=== PATIENT | male | born 1940 | race Caucasian/White ===

== ENCOUNTER 2017-07-11 08:56 | Day surgery (SDC) | payer MEDICARE, MEDICAID ==
[~2017-07-11 08:56] MED LIST: ASPI-1265 PO; ATOR20TA66 PO; INSU100V12 SQ; INSU100V36 SQ; LISI10TA4 PO; METF1000 PO
[2017-07-11] MEDS ORDERED: LIDOcaine 2% 5ml jelly ONE (09:39)
[2017-07-11] MEDS ORDERED: BENA20TA76 PO (10:40)
[2017-07-11] MEDS ORDERED: SAW450CA7 PO (10:41)
[2017-07-11] MEDS ORDERED: VITA1CAP (10:42)
== END 2017-07-11 10:45 | disposition home or self-care (01) ==
LOC: WOUND CARE 08:56
PROVIDERS: ATTEND Surgery
DX: T81.89XD Other complications of procedures, not elsewhere classified, subsequent encounter (principal); E11.622 Type 2 diabetes mellitus with other skin ulcer; L98.491 Non-pressure chronic ulcer of skin of other sites limited to breakdown of skin; I10 Essential (primary) hypertension; Z79.82 Long term (current) use of aspirin; Z79.4 Long term (current) use of insulin; Z79.899 Other long term (current) drug therapy; Y83.8 Other surgical procedures as the cause of abnormal reaction of the patient, or of later complication, without mention of misadventure at the time of the procedure
CPT/HCPCS: 17250; 36416; 82948; A6206; A6209

== ENCOUNTER 2017-07-17 08:51 | Day surgery (SDC) | payer MEDICARE, MEDICAID ==
[~2017-07-17 08:51] MED LIST changes: -ATOR20TA66 PO; +BENA20TA76 PO; -LISI10TA4 PO; +SAW450CA7 PO; +VITA1CAP
[2017-07-17] MEDS ORDERED: LIDOcaine 2% 5ml jelly ONE (10:05)
== END 2017-07-17 10:43 | disposition home or self-care (01) ==
LOC: WOUND CARE 08:51
PROVIDERS: ATTEND Surgery
DX: T81.89XD Other complications of procedures, not elsewhere classified, subsequent encounter (principal); I10 Essential (primary) hypertension; Z79.4 Long term (current) use of insulin; Y83.8 Other surgical procedures as the cause of abnormal reaction of the patient, or of later complication, without mention of misadventure at the time of the procedure
CPT/HCPCS: 17250; 36416; 82948; A6021; A6213

== ENCOUNTER 2017-07-24 09:33 | Outpatient (CLI) | payer MEDICARE, MEDICAID ==
[2017-07-24] MEDS ORDERED: LIDOcaine 2% 5ml jelly ONE (10:10)
[2017-07-24] MEDS ORDERED: nystatin/triamcinolone cream 15gm TP ONE (10:43)
== END 2017-07-24 10:52 | disposition home or self-care (01) ==
LOC: WOUND CARE 09:33
PROVIDERS: ATTEND Surgery
DX: T81.89XD Other complications of procedures, not elsewhere classified, subsequent encounter (principal); L98.491 Non-pressure chronic ulcer of skin of other sites limited to breakdown of skin; I10 Essential (primary) hypertension; Z79.82 Long term (current) use of aspirin; Z79.899 Other long term (current) drug therapy; Y83.8 Other surgical procedures as the cause of abnormal reaction of the patient, or of later complication, without mention of misadventure at the time of the procedure
CPT/HCPCS: 99214; A6212

== ENCOUNTER 2017-07-31 09:47 | Day surgery (SDC) | payer MEDICARE, MEDICAID ==
[2017-07-31] MEDS ORDERED: LIDOcaine 2% 5ml jelly ONE (10:18)
== END 2017-07-31 10:35 | disposition home or self-care (01) ==
LOC: WOUND CARE 09:47
PROVIDERS: ATTEND Surgery
DX: T81.89XD Other complications of procedures, not elsewhere classified, subsequent encounter (principal); L98.491 Non-pressure chronic ulcer of skin of other sites limited to breakdown of skin; I10 Essential (primary) hypertension; Z79.82 Long term (current) use of aspirin; Z79.899 Other long term (current) drug therapy; Y83.8 Other surgical procedures as the cause of abnormal reaction of the patient, or of later complication, without mention of misadventure at the time of the procedure
CPT/HCPCS: 17250; 36416; 82948; A6021; A6212

== ENCOUNTER 2018-05-06 08:02 | Day surgery (SDC) | payer MEDICARE, MEDICAID ==
[2018-05-06] VITALS (7 sets, daily range): BP systolic 149–179; BP diastolic 71–102
[~2018-05-06] VITALS: Ht 180.3 cm; Wt 110.0 kg
[~2018-05-06 08:02] MED LIST changes: +ASCO500C15 PO; -BENA20TA76 PO; +BRIM10DR2 EACHEYE; +GARL400T5 PO; -INSU100V12 SQ; +LANTUS SQ; +LISI-604 PO; +NIA500ERT PO; +OMEG1CAP13 PO; -SAW450CA7 PO; +TRAV5DRO EACHEYE; +UBID1CAP60 PO; +VITA150T PO; -VITA1CAP; +famotidine 20mg tablet PO ONE; +ringers solution, lacted 1,000 ML IV SCH
[2018-05-06] MEDS ORDERED: cefazolin/dext.iso 2gm/100ml 100 ML IV ONE (09:06)
[2018-05-06 10:23] LABS: BASOPHILS % (AUTO) 0.8 % (0-1); EOSINOPHILS # (AUTO) 0.1 X10'3 (0-0.9); EOSINOPHILS % (AUTO) 2.2 % (0-6); LYMPHOCYTES % (AUTO) 19.6 % (21-51); MEAN CORPUSCULAR HGB CONC 33.4 % (33.0-36.5); MEAN CORPUSCULAR VOLUME 92.8 FL (78-98); MEAN PLATELET VOLUME 10.1 FL (7.4-10.4); MONOCYTES # (AUTO) 0.3 X10'3 (0-0.9); MONOCYTES % (AUTO) 5.8 % (2-12); NEUTROPHILS # (AUTO) 3.7 X10'3 (1.8-7.7); NEUTROPHILS % (AUTO) 71.6 % (42-75); PRE OP HEMOGLOBIN 13.7 g/dL (14.0-17.9); PRE OP PLATELET COUNT 185 X10'3 (140-440); RED BLOOD COUNT 4.42 X10'6 (4.70-6.10); RED CELL DISTRIBUTION WIDTH 14.3 % (11.5-14.5)
[2018-05-06 10:39] LABS: ALBUMIN 3.1 G/DL (3.4-5.0); ALBUMIN/GLOBULIN RATIO 0.7 (1.1-1.5); ALKALINE PHOSPHATASE 114 IU/L (46-116); BLOOD UREA NITROGEN 12 MG/DL (7-18); BUN/CREATININE RATIO 16.9 (5.4-32.0); CALCIUM 8.8 MG/DL (8.5-10.1); CHLORIDE 104 MMOL/L (99-107); CREATININE 0.71 MG/DL (0.60-1.10); PRE OP ALT 18 U/L (30-65); PRE OP ANION GAP 6 (8-16); PRE OP AST 18 U/L (10-37); PRE OP BILIRUB, TOTAL 1.1 MG/DL (0.0-1.0); PRE OP GLUCOSE 126 MG/DL (70-104); PRE OP POTASSIUM 4.2 MMOL/L (3.4-5.1); PRE OP SODIUM 144 MMOL/L (135-145); TOTAL CARBON DIOXIDE 34.2 MMOL/L (24-32); TOTAL PROTEIN 7.5 G/DL (6.4-8.2); eGFR > 90 ML/MIN
[2018-05-06] MEDS ORDERED: sevoflurane 250ml liquid IH ONE (12:19)
[2018-05-06] MEDS ORDERED: LIDOcaine 1% (10mg/ml) 2ml vial ONE (12:19)
[2018-05-06] MEDS ORDERED: fentaNYL/PF 50MCG/1 ML 2ML syringe ONE (12:24)
[2018-05-06] MEDS ORDERED: midazolam 2 mg/2 ml injection ONE (12:25)
[2018-05-06] MEDS ORDERED: rocuronium 10mg/ml inj IV ONE (12:25)
[2018-05-06] MEDS ORDERED: propofol inj 20 ML IV ONE (12:33)
[2018-05-06] MEDS ORDERED: ringers solution, lacted 1,000 ML IV SCH (12:47)
[2018-05-06] MEDS ORDERED: morphine 4 MG/ML inj SYRINge IV PRN ×2 (12:50)
[2018-05-06] MEDS ORDERED: ondansetron/PF 4mg/2ml inj IV PRN (12:50)
[2018-05-06] MEDS ORDERED: fentaNYL/PF 50MCG/1 ML 2ML syringe IV PRN ×2 (12:50)
[2018-05-06] MEDS ORDERED: enalaprilat dihydrate 2.5mg/2ml vial IV PRN (12:50)
[2018-05-06] MEDS ORDERED: hydrALAZINE 20mg/ml inj. IV PRN (12:50)
[2018-05-06] MEDS ORDERED: flumazenil 0.1 mg/ml inj. IV ONE (13:04)
== END 2018-05-06 13:55 | disposition home or self-care (01) ==
LOC: PAS 08:02
PROVIDERS: ATTEND Surgery
DX: T81.89XA Other complications of procedures, not elsewhere classified, initial encounter (principal); Y83.8 Other surgical procedures as the cause of abnormal reaction of the patient, or of later complication, without mention of misadventure at the time of the procedure; Y92.89 Other specified places as the place of occurrence of the external cause; I45.2 Bifascicular block; E66.01 Morbid (severe) obesity due to excess calories; I10 Essential (primary) hypertension; G47.33 Obstructive sleep apnea (adult) (pediatric); E11.9 Type 2 diabetes mellitus without complications; M19.90 Unspecified osteoarthritis, unspecified site; Z68.33 Body mass index [BMI] 33.0-33.9, adult; Z95.5 Presence of coronary angioplasty implant and graft; Z98.41 Cataract extraction status, right eye; Z86.14 Personal history of Methicillin resistant Staphylococcus aureus infection; Z79.82 Long term (current) use of aspirin; Z79.4 Long term (current) use of insulin; Z79.84 Long term (current) use of oral hypoglycemic drugs; Z87.891 Personal history of nicotine dependence; Z79.899 Other long term (current) drug therapy; Z98.890 Other specified postprocedural states; Z83.3 Family history of diabetes mellitus; Z80.9 Family history of malignant neoplasm, unspecified
CPT/HCPCS: 11043; 36415; 80053; 82948; 85025; 93005; A6253; J0690; J2250; J2704; J3010; J3490; J7120; A6446; A7000

== ENCOUNTER 2018-05-25 09:22 | Day surgery (SDC) | payer MEDICARE, MEDICAID ==
[~2018-05-25 09:22] MED LIST changes: -famotidine 20mg tablet PO ONE; -ringers solution, lacted 1,000 ML IV SCH
== END 2018-05-25 12:44 | disposition home or self-care (01) ==
LOC: WOUND CARE 09:22
PROVIDERS: ATTEND Surgery
DX: T81.89XD Other complications of procedures, not elsewhere classified, subsequent encounter (principal); L98.491 Non-pressure chronic ulcer of skin of other sites limited to breakdown of skin; I10 Essential (primary) hypertension; Z79.82 Long term (current) use of aspirin; Z79.899 Other long term (current) drug therapy; Y83.8 Other surgical procedures as the cause of abnormal reaction of the patient, or of later complication, without mention of misadventure at the time of the procedure
CPT/HCPCS: 36416; 82948; 97597; A6266; A6212

== ENCOUNTER 2018-06-01 10:19 | Day surgery (SDC) | payer MEDICARE, MEDICAID | END 2018-06-01 12:28 | disposition home or self-care (01) | LOC: WOUND CARE 10:19 | PROVIDERS: ATTEND Surgery | DX: T81.89XD Other complications of procedures, not elsewhere classified, subsequent encounter (principal); L98.492 Non-pressure chronic ulcer of skin of other sites with fat layer exposed; E11.65 Type 2 diabetes mellitus with hyperglycemia; I10 Essential (primary) hypertension; Z79.82 Long term (current) use of aspirin; Z79.899 Other long term (current) drug therapy; Y83.8 Other surgical procedures as the cause of abnormal reaction of the patient, or of later complication, without mention of misadventure at the time of the procedure | CPT/HCPCS: 11042; 36416; 82948; A6266 ==

== ENCOUNTER 2018-06-15 10:32 | Day surgery (SDC) | payer MEDICARE, MEDICAID | END 2018-06-15 13:17 | disposition home or self-care (01) | LOC: WOUND CARE 10:32 | PROVIDERS: ATTEND Surgery | DX: T81.89XD Other complications of procedures, not elsewhere classified, subsequent encounter (principal); L98.492 Non-pressure chronic ulcer of skin of other sites with fat layer exposed; E11.65 Type 2 diabetes mellitus with hyperglycemia; I10 Essential (primary) hypertension; Z79.82 Long term (current) use of aspirin; Z79.899 Other long term (current) drug therapy; Y83.8 Other surgical procedures as the cause of abnormal reaction of the patient, or of later complication, without mention of misadventure at the time of the procedure | CPT/HCPCS: 17250; 36416; 82948; 97597; A6021; A6212 ==

== ENCOUNTER 2018-06-25 09:01 | Day surgery (SDC) | payer MEDICARE, MEDICAID | END 2018-06-25 12:05 | disposition home or self-care (01) | LOC: WOUND CARE 09:01 | PROVIDERS: ATTEND Surgery | DX: T81.89XD Other complications of procedures, not elsewhere classified, subsequent encounter (principal); L98.492 Non-pressure chronic ulcer of skin of other sites with fat layer exposed; E11.65 Type 2 diabetes mellitus with hyperglycemia; I10 Essential (primary) hypertension; Z79.82 Long term (current) use of aspirin; Z79.899 Other long term (current) drug therapy; Y83.8 Other surgical procedures as the cause of abnormal reaction of the patient, or of later complication, without mention of misadventure at the time of the procedure | CPT/HCPCS: 36416; 82948; 97597; A6021; A6212 ==

== ENCOUNTER 2018-07-10 09:53 | Day surgery (SDC) | payer MEDICARE, MEDICAID ==
[2018-07-10] MEDS ORDERED: LIDOcaine/PRILOcaine 5gm cream TP ONE (11:02)
--- NOTE | 2018-07-10 14:01 | NUR ---
Patient ambulated independently from [facility] and was admitted to outpatient wound care for physician visit. Dressings removed, wounds cleansed and Emla applied per order. Patient assessed for changes in conditions, medications and medical history. [id number] Dr. Collins at bedside accompanied by RN. Wound assessed, time out performed by MD/RN. Wound debrided as detailed in the physician progress/procedure note. Plan of care discussed with patient. Dressings placed per MD orders. Patient instructed on the signs and symptoms of infection and to call the Wound Center if any occur or to go to the ED if we are closed: Increased pain in wound Increase in drainage from the wound Redness in the skin surrounding the wound Bleeding from the wound Temperature of 101 or greater Patient instructed that elevated blood sugars delay healing of the wound and can cause further complications including but not limited to amputation of toes or feet. Patient verbalized understanding of all discharge instructions and plan of care and ambulated independently out to [facility] in stable condition with no sign or symptom of distress at time of discharge Addendum: 07/10/18 at 1405 by Andreina Carrasco RN Amended: Links added.
== END 2018-07-10 11:46 | disposition home or self-care (01) ==
LOC: WOUND CARE 09:53
PROVIDERS: ATTEND Surgery
DX: T84.69XD Infection and inflammatory reaction due to internal fixation device of other site, subsequent encounter (principal); L98.492 Non-pressure chronic ulcer of skin of other sites with fat layer exposed; E11.65 Type 2 diabetes mellitus with hyperglycemia; I10 Essential (primary) hypertension; G47.30 Sleep apnea, unspecified; Z79.82 Long term (current) use of aspirin; Z79.899 Other long term (current) drug therapy; Y83.8 Other surgical procedures as the cause of abnormal reaction of the patient, or of later complication, without mention of misadventure at the time of the procedure
CPT/HCPCS: 17250; 36416; 82948; A6021; A6206

== ENCOUNTER 2018-07-23 09:59 | Day surgery (SDC) | payer MEDICARE, MEDICAID ==
[2018-07-23] MEDS ORDERED: LIDOcaine 2% 5ml jelly ONE (12:02)
--- NOTE | 2018-07-23 14:21 | NUR ---
Patient ambulated independently from [facility] and was admitted to outpatient wound care for physician visit. Dressing removed, wound cleansed and Emla applied per order. Patient assessed for changes in conditions, medications and medical history. Dr. Collins at bedside accompanied by RN. Wound assessed, time out performed by MD/RN. Wound debrided as detailed in the physician progress/procedure note. Plan of care discussed with patient. Dressings placed per MD orders. Patient instructed on the signs and symptoms of infection and to call the Wound Center if any occur or to go to the ED if we are closed: Increased pain in wound Increase in drainage from the wound Redness in the skin surrounding the wound Bleeding from the wound Temperature of 101 or greater Patient instructed that elevated blood sugars delay healing of the wound and can cause further complications including but not limited to amputation of toes or feet. Patient verbalized understanding of all discharge instructions and plan of care and ambulated independently out to [facility] in stable condition with no sign or symptom of distress at time of discharge. Addendum: 07/23/18 at 1438 by Andreina Carrasco RN Amended: Links added.
== END 2018-07-23 12:41 | disposition home or self-care (01) ==
LOC: WOUND CARE 09:59
PROVIDERS: ATTEND Surgery
DX: T84.69XD Infection and inflammatory reaction due to internal fixation device of other site, subsequent encounter (principal); L98.492 Non-pressure chronic ulcer of skin of other sites with fat layer exposed; E11.65 Type 2 diabetes mellitus with hyperglycemia; I10 Essential (primary) hypertension; M19.90 Unspecified osteoarthritis, unspecified site; G47.30 Sleep apnea, unspecified; Z79.82 Long term (current) use of aspirin; Z79.899 Other long term (current) drug therapy; Y83.8 Other surgical procedures as the cause of abnormal reaction of the patient, or of later complication, without mention of misadventure at the time of the procedure
CPT/HCPCS: 36416; 82948; 97597; A4649; A6021; A6206; A6243

== ENCOUNTER 2018-08-07 09:50 | Day surgery (SDC) | payer MEDICARE, MEDICAID ==
[2018-08-07] MEDS ORDERED: LIDOcaine 2% 5ml jelly ONE (10:36)
--- NOTE | 2018-08-07 11:30 | NUR ---
Patient ambulated independently from [facility] and was admitted to outpatient wound care for physician visit with Eric Collins MD. Dressing removed, wound cleansed and lidocaine applied per order. Patient assessed for changes in conditions, medications and medical history. 1034 - blood glucose 102. Patient instructed that elevated blood sugars delay healing of the wound and can cause further complications including but not limited to amputation of toes or feet. 1100 - Dr. Collins at bedside accompanied by RN. Wound assessed, time out performed by MD/RN. Wound debrided as detailed in the physician progress/procedure note. Plan of care discussed with patient. Dressings placed per MD orders. Patient instructed on the signs and symptoms of infection and to call the Wound Center if any occur or to go to the ED if we are closed: Increased pain in wound Increase in drainage from the wound Redness in the skin surrounding the wound Bleeding from the wound Temperature of 101 or greater Patient instructed that the weight of their body puts a large amount of pressure on their wounds. This pressure keeps the new tissue from growing and inhibits new blood vessels from forming. Explained that, if they continue to bear weight on a body part that has a wound, the time it takes to heal the wound increases, the wound may get worse or the wound may not heal at all. Patient verbalized understanding of all discharge instructions and plan of care and ambulated independently out to [facility] in stable condition with no sign or symptom of distress at time of discharge.
== END 2018-08-07 11:04 | disposition home or self-care (01) ==
LOC: WOUND CARE 09:50
PROVIDERS: ATTEND Surgery
DX: T84.69XD Infection and inflammatory reaction due to internal fixation device of other site, subsequent encounter (principal); L98.492 Non-pressure chronic ulcer of skin of other sites with fat layer exposed; E11.65 Type 2 diabetes mellitus with hyperglycemia; I10 Essential (primary) hypertension; M19.90 Unspecified osteoarthritis, unspecified site; G47.30 Sleep apnea, unspecified; Z79.82 Long term (current) use of aspirin; Z79.899 Other long term (current) drug therapy; Y83.8 Other surgical procedures as the cause of abnormal reaction of the patient, or of later complication, without mention of misadventure at the time of the procedure
CPT/HCPCS: 36416; 82948; 97597; A6021

== ENCOUNTER 2018-08-12 19:46 | Emergency (ER) | payer MEDICARE, MEDICAID ==
[~2018-08-12] VITALS: Ht 180.3 cm; Wt 109.1 kg
[2018-08-12 19:50] VITALS: BP 121/79
[2018-08-12] MEDS ORDERED: insulin glargine (Lantus) pen - multi-dose SQ ONE (21:40)
== END 2018-08-12 22:19 | disposition home or self-care (01) ==
LOC: ER 19:47
DX: E10.9 Type 1 diabetes mellitus without complications (principal); I10 Essential (primary) hypertension; Z76.0 Encounter for issue of repeat prescription; Z79.82 Long term (current) use of aspirin; Z79.4 Long term (current) use of insulin
CPT/HCPCS: 96372; 99283; J1815

== ENCOUNTER 2018-08-14 09:58 | Day surgery (SDC) | payer MEDICARE, MEDICAID ==
[2018-08-14] MEDS ORDERED: LIDOcaine/PRILOcaine 5gm cream TP ONE (10:22)
--- NOTE | 2018-08-14 11:48 | NUR ---
Patient ambulated independently from [facility] and was admitted to outpatient wound care for physician visit with Eric Collins MD. Dressing removed, wound cleansed and lidocaine applied per order. Patient assessed for changes in conditions, medications and medical history. Dr. Collins at bedside accompanied by RN. Wound assessed, time out performed by MD/RN. Wound debrided as detailed in the physician progress/procedure note. Plan of care discussed with patient. Dressings placed per MD orders. Patient instructed on the signs and symptoms of infection and to call the Wound Center if any occur or to go to the ED if we are closed: Increased pain in wound Increase in drainage from the wound Redness in the skin surrounding the wound Bleeding from the wound Temperature of 101 or greater Patient instructed that elevated blood sugars delay healing of the wound and can cause further complications including but not limited to amputation of toes or feet. Patient instructed that the weight of their body puts a large amount of pressure on their wounds. This pressure keeps the new tissue from growing and inhibits new blood vessels from forming. Explained that, if they continue to bear weight on a body part that has a wound, the time it takes to heal the wound increases, the wound may get worse or the wound may not heal at all. Patient verbalized understanding of all discharge instructions and plan of care and ambulated independently out to [facility] in stable condition with no sign or symptom of distress at time of discharge. Addendum: 08/14/18 at 1150 by Andreina Carrasco RN Amended: Links added.
== END 2018-08-14 11:15 | disposition home or self-care (01) ==
LOC: WOUND CARE 09:58
PROVIDERS: ATTEND Surgery
DX: T84.69XD Infection and inflammatory reaction due to internal fixation device of other site, subsequent encounter (principal); E11.622 Type 2 diabetes mellitus with other skin ulcer; L98.492 Non-pressure chronic ulcer of skin of other sites with fat layer exposed; E11.65 Type 2 diabetes mellitus with hyperglycemia; I10 Essential (primary) hypertension; M19.90 Unspecified osteoarthritis, unspecified site; G47.30 Sleep apnea, unspecified; Z79.82 Long term (current) use of aspirin; Z79.899 Other long term (current) drug therapy; Y83.8 Other surgical procedures as the cause of abnormal reaction of the patient, or of later complication, without mention of misadventure at the time of the procedure
CPT/HCPCS: 36416; 82948; 97597; A6222; A6021

== ENCOUNTER 2018-08-26 09:28 | Day surgery (SDC) | payer MEDICARE, MEDICAID ==
[2018-08-26] MEDS ORDERED: LIDOcaine/PRILOcaine 5gm cream TP ONE (09:55)
--- NOTE | 2018-08-26 10:40 | NUR ---
Patient ambulated independently from [facility] and was admitted to outpatient wound care for physician visit with Eric Collins MD. Dressing removed, wound cleansed and lidocaine applied per order. Patient assessed for changes in conditions, medications and medical history. Dr. Collins at bedside accompanied by RN. Wound assessed, time out performed by MD/RN. Wound debrided as detailed in the physician progress/procedure note. Plan of care discussed with patient. Dressings placed per MD orders. Patient instructed on the signs and symptoms of infection and to call the Wound Center if any occur or to go to the ED if we are closed: Increased pain in wound Increase in drainage from the wound Redness in the skin surrounding the wound Bleeding from the wound Temperature of 101 or greater Patient instructed that elevated blood sugars delay healing of the wound and can cause further complications including but not limited to amputation of toes or feet. Patient instructed that the weight of their body puts a large amount of pressure on their wounds. This pressure keeps the new tissue from growing and inhibits new blood vessels from forming. Explained that, if they continue to bear weight on a body part that has a wound, the time it takes to heal the wound increases, the wound may get worse or the wound may not heal at all. Patient verbalized understanding of all discharge instructions and plan of care and ambulated independently out to [facility] in stable condition with no sign or symptom of distress at time of discharge. Addendum: 08/26/18 at 1040 by Andreina Carrasco RN Amended: Links added.
== END 2018-08-26 10:20 | disposition home or self-care (01) ==
LOC: WOUND CARE 09:28
PROVIDERS: ATTEND Surgery
DX: T84.69XD Infection and inflammatory reaction due to internal fixation device of other site, subsequent encounter (principal); E11.622 Type 2 diabetes mellitus with other skin ulcer; L98.492 Non-pressure chronic ulcer of skin of other sites with fat layer exposed; E11.65 Type 2 diabetes mellitus with hyperglycemia; I10 Essential (primary) hypertension; M19.90 Unspecified osteoarthritis, unspecified site; G47.30 Sleep apnea, unspecified; Z79.82 Long term (current) use of aspirin; Z79.899 Other long term (current) drug therapy; Z79.4 Long term (current) use of insulin; Y83.8 Other surgical procedures as the cause of abnormal reaction of the patient, or of later complication, without mention of misadventure at the time of the procedure
CPT/HCPCS: 17250; 36416; 82948; A6021; A6206; A6243

== ENCOUNTER 2018-09-02 09:54 | Day surgery (SDC) | payer MEDICARE, MEDICAID ==
[2018-09-02] MEDS ORDERED: LIDOcaine/PRILOcaine 5gm cream TP ONE (10:17)
--- NOTE | 2018-09-02 11:00 | NUR ---
Patient ambulated with walker accompanied by family from [facility] [employer] and was admitted to outpatient wound care for physician visit with Eric Collins MD. Dressing removed, wound cleansed and Emla cream applied per order. Patient assessed for changes in conditions, medications and medical history. 1029 - blood glucose 267. Patient instructed that elevated blood sugars delay healing of the wound and can cause further complications including but not limited to amputation of toes or feet. 1025 - Dr. Collins at bedside accompanied by RN. Wound assessed, time out performed by MD/RN. Wound debrided as detailed in the physician progress/procedure note. Plan of care discussed with patient. Dressings placed per MD orders. Patient instructed on the signs and symptoms of infection and to call the Wound Center if any occur or to go to the ED if we are closed: Increased pain in wound Increase in drainage from the wound Redness in the skin surrounding the wound Bleeding from the wound Temperature of 101 or greater Patient instructed that the weight of their body puts a large amount of pressure on their wounds. This pressure keeps the new tissue from growing and inhibits new blood vessels from forming. Explained that, if they continue to bear weight on a body part that has a wound, the time it takes to heal the wound increases, the wound may get worse or the wound may not heal at all. Patient verbalized understanding of all discharge instructions and plan of care and ambulated with walker accompanied by family member out to [facility] in stable condition with no sign or symptom of distress at time of discharge.
[2018-09-02] MEDS ORDERED: LACT1CAP65 PO (13:37)
== END 2018-09-02 10:49 | disposition home or self-care (01) ==
LOC: WOUND CARE 09:54
PROVIDERS: ATTEND Surgery
DX: T84.69XD Infection and inflammatory reaction due to internal fixation device of other site, subsequent encounter (principal); E11.622 Type 2 diabetes mellitus with other skin ulcer; L98.492 Non-pressure chronic ulcer of skin of other sites with fat layer exposed; E11.65 Type 2 diabetes mellitus with hyperglycemia; I10 Essential (primary) hypertension; M19.90 Unspecified osteoarthritis, unspecified site; G47.30 Sleep apnea, unspecified; Z79.82 Long term (current) use of aspirin; Z79.899 Other long term (current) drug therapy; Z79.4 Long term (current) use of insulin; Y83.8 Other surgical procedures as the cause of abnormal reaction of the patient, or of later complication, without mention of misadventure at the time of the procedure
CPT/HCPCS: 36416; 82948; 97597; A6021; A6212

== ENCOUNTER 2018-09-16 09:58 | Day surgery (SDC) | payer MEDICARE, MEDICAID ==
[~2018-09-16 09:58] MED LIST changes: +GARL400T14 PO; -GARL400T5 PO; +LACT1CAP65 PO
[2018-09-16] MEDS ORDERED: LIDOcaine/PRILOcaine 5gm cream TP ONE (10:34)
--- NOTE | 2018-09-16 11:15 | NUR ---
Patient ambulated independently from lobby accompanied by family member and was admitted to outpatient wound care for physician visit with Eric Collins MD. Dressing removed, wound cleansed and Emla cream applied per order. Patient assessed for changes in conditions, medications and medical history. 1040 - Dr. Collins at bedside accompanied by RN. Wound assessed, time out performed by MD/RN. Wound debrided as detailed in the physician progress/procedure note. Plan of care discussed with patient. Dressings placed per MD orders. Patient instructed on the signs and symptoms of infection and to call the Wound Center if any occur or to go to the ED if we are closed: Increased pain in wound Increase in drainage from the wound Redness in the skin surrounding the wound Bleeding from the wound Temperature of 101 or greater Patient instructed that the weight of their body puts a large amount of pressure on their wounds. This pressure keeps the new tissue from growing and inhibits new blood vessels from forming. Explained that, if they continue to bear weight on a body part that has a wound, the time it takes to heal the wound increases, the wound may get worse or the wound may not heal at all. Patient verbalized understanding of all discharge instructions and plan of care and ambulated independently out to [facility] accompanied by family member in stable condition with no sign or symptom of distress at time of discharge.
== END 2018-09-16 11:13 | disposition home or self-care (01) ==
LOC: WOUND CARE 09:58
PROVIDERS: ATTEND Surgery
DX: T84.69XD Infection and inflammatory reaction due to internal fixation device of other site, subsequent encounter (principal); E11.622 Type 2 diabetes mellitus with other skin ulcer; L98.492 Non-pressure chronic ulcer of skin of other sites with fat layer exposed; E11.65 Type 2 diabetes mellitus with hyperglycemia; I10 Essential (primary) hypertension; M19.90 Unspecified osteoarthritis, unspecified site; G47.30 Sleep apnea, unspecified; Z79.82 Long term (current) use of aspirin; Z79.899 Other long term (current) drug therapy; Z79.4 Long term (current) use of insulin; Y83.8 Other surgical procedures as the cause of abnormal reaction of the patient, or of later complication, without mention of misadventure at the time of the procedure
CPT/HCPCS: 97597; A6021; A6206; A6243

== ENCOUNTER 2018-09-30 09:52 | Day surgery (SDC) | payer MEDICARE, MEDICAID ==
--- NOTE | 2018-09-30 11:15 | NUR ---
Patient ambulated independently accompanied by caregiver from [facility] and was admitted to outpatient wound care for physician visit with Eric Collins MD. Dressing removed, wound cleansed and lidocaine cream applied per order. Patient assessed for changes in conditions, medications and medical history. 1026 - blood glucose 274. Patient instructed that elevated blood sugars delay healing of the wound and can cause further complications including but not limited to amputation of toes or feet. 1040 - Dr. Collins at bedside accompanied by RN. Wound assessed, time out performed by MD/RN. Wound debrided as detailed in the physician progress/procedure note. Plan of care discussed with patient. Dressings placed per MD orders. Patient instructed on the signs and symptoms of infection and to call the Wound Center if any occur or to go to the ED if we are closed: Increased pain in wound Increase in drainage from the wound Redness in the skin surrounding the wound Bleeding from the wound Temperature of 101 or greater Patient instructed that the weight of their body puts a large amount of pressure on their wounds. This pressure keeps the new tissue from growing and inhibits new blood vessels from forming. Explained that, if they continue to bear weight on a body part that has a wound, the time it takes to heal the wound increases, the wound may get worse or the wound may not heal at all. Patient verbalized understanding of all discharge instructions and plan of care and ambulated independently out to [facility] in stable condition with no sign or symptom of distress at time of discharge. Addendum: 09/30/18 at 1444 by Nohelia Olivas RN Patient accompanied by caregiver at time of discharge. Voicemail left at [facility] Shelly BULLARD to update.
[2018-09-30] MEDS ORDERED: LISI10TA4 PO (14:36)
[2018-09-30] MEDS ORDERED: INSU100C10 SQ (14:36)
[2018-09-30] MEDS ORDERED: INSU100V9 SQ (14:36)
== END 2018-09-30 11:08 | disposition home or self-care (01) ==
LOC: WOUND CARE 09:52
PROVIDERS: ATTEND Surgery
DX: T84.69XD Infection and inflammatory reaction due to internal fixation device of other site, subsequent encounter (principal); E11.622 Type 2 diabetes mellitus with other skin ulcer; L98.492 Non-pressure chronic ulcer of skin of other sites with fat layer exposed; E11.65 Type 2 diabetes mellitus with hyperglycemia; I10 Essential (primary) hypertension; M19.90 Unspecified osteoarthritis, unspecified site; G47.30 Sleep apnea, unspecified; Z79.82 Long term (current) use of aspirin; Z79.899 Other long term (current) drug therapy; Z79.4 Long term (current) use of insulin; Y83.8 Other surgical procedures as the cause of abnormal reaction of the patient, or of later complication, without mention of misadventure at the time of the procedure
CPT/HCPCS: 36416; 82948; 97597; A6021; A6206; A6243

== ENCOUNTER 2018-10-14 10:00 | Day surgery (SDC) | payer MEDICARE, MEDICAID ==
[~2018-10-14 10:00] MED LIST changes: +INSU100C10 SQ; -INSU100V36 SQ; +INSU100V9 SQ; -LANTUS SQ; -LISI-604 PO; +LISI10TA4 PO
[2018-10-14] MEDS ORDERED: LIDOcaine/PRILOcaine 5gm cream TP ONE ×2 (10:26)
--- NOTE | 2018-10-14 14:13 | NUR ---
Patient ambulated independently from [facility] and was admitted to outpatient wound care for physician visit with Eric Collins MD. Dressing removed, wound cleansed and lidocaine applied per order. Patient assessed for changes in conditions, medications and medical history. Dr. Collins at bedside accompanied by RN. Wound assessed, time out performed by MD/RN. Wound debrided as detailed in the physician progress/procedure note. Plan of care discussed with patient. Dressings placed per MD orders. Patient instructed on the signs and symptoms of infection and to call the Wound Center if any occur or to go to the ED if we are closed: Increased pain in wound Increase in drainage from the wound Redness in the skin surrounding the wound Bleeding from the wound Temperature of 101 or greater Patient instructed that the weight of their body puts a large amount of pressure on their wounds. This pressure keeps the new tissue from growing and inhibits new blood vessels from forming. Explained that, if they continue to bear weight on a body part that has a wound, the time it takes to heal the wound increases, the wound may get worse or the wound may not heal at all. Patient verbalized understanding of all discharge instructions and plan of care and ambulated independently out to [facility] in stable condition with no sign or symptom of distress at time of discharge. Addendum: 10/14/18 at 1415 by Andreina Carrasco RN Amended: Links added.
== END 2018-10-14 11:25 | disposition home or self-care (01) ==
LOC: WOUND CARE 10:00
PROVIDERS: ATTEND Surgery
DX: T84.69XD Infection and inflammatory reaction due to internal fixation device of other site, subsequent encounter (principal); E11.622 Type 2 diabetes mellitus with other skin ulcer; L98.492 Non-pressure chronic ulcer of skin of other sites with fat layer exposed; E11.65 Type 2 diabetes mellitus with hyperglycemia; I10 Essential (primary) hypertension; M19.90 Unspecified osteoarthritis, unspecified site; G47.30 Sleep apnea, unspecified; Z79.82 Long term (current) use of aspirin; Z79.899 Other long term (current) drug therapy; Z79.4 Long term (current) use of insulin; Y83.8 Other surgical procedures as the cause of abnormal reaction of the patient, or of later complication, without mention of misadventure at the time of the procedure
CPT/HCPCS: 97597; A6021; A6206; A6243

== ENCOUNTER 2018-10-28 09:55 | Day surgery (SDC) | payer MEDICARE, MEDICAID ==
--- NOTE | 2018-10-28 15:59 | NUR ---
Patient ambulated independently from [facility] and was admitted to outpatient wound care for physician visit with Eric Collins MD. Dressing removed, wound cleansed and lidocaine applied per order. Patient assessed for changes in conditions, medications and medical history. Dr. Collins at bedside accompanied by RN. Wound assessed, time out performed by MD/RN. Wound debrided as detailed in the physician progress/procedure note. Plan of care discussed with patient. Dressings placed per MD orders. Patient instructed on the signs and symptoms of infection and to call the Wound Center if any occur or to go to the ED if we are closed: Increased pain in wound Increase in drainage from the wound Redness in the skin surrounding the wound Bleeding from the wound Temperature of 101 or greater Patient instructed that elevated blood sugars delay healing of the wound and can cause further complications including but not limited to amputation of toes or feet. Patient instructed that the weight of their body puts a large amount of pressure on their wounds. This pressure keeps the new tissue from growing and inhibits new blood vessels from forming. Explained that, if they continue to bear weight on a body part that has a wound, the time it takes to heal the wound increases, the wound may get worse or the wound may not heal at all. Patient verbalized understanding of all discharge instructions and plan of care and ambulated independently out to [facility] in stable condition with no sign or symptom of distress at time of discharge. Addendum: 10/28/18 at 1603 by Andreina Carrasco RN Amended: Links added.
== END 2018-10-28 11:07 | disposition home or self-care (01) ==
LOC: WOUND CARE 09:55
PROVIDERS: ATTEND Surgery
DX: T84.69XD Infection and inflammatory reaction due to internal fixation device of other site, subsequent encounter (principal); E11.622 Type 2 diabetes mellitus with other skin ulcer; L98.492 Non-pressure chronic ulcer of skin of other sites with fat layer exposed; E11.65 Type 2 diabetes mellitus with hyperglycemia; I10 Essential (primary) hypertension; M19.90 Unspecified osteoarthritis, unspecified site; G47.30 Sleep apnea, unspecified; Z79.82 Long term (current) use of aspirin; Z79.899 Other long term (current) drug therapy; Z79.4 Long term (current) use of insulin; Y83.8 Other surgical procedures as the cause of abnormal reaction of the patient, or of later complication, without mention of misadventure at the time of the procedure
CPT/HCPCS: 36416; 82948; 97597; A6021; A6243

== ENCOUNTER 2019-01-08 10:00 | Day surgery (SDC) | payer MEDICARE, MEDICAID ==
[~2019-01-08 10:00] MED LIST changes: -BRIM10DR2 EACHEYE; +CEFD300C3 PO; +GARL100T; -GARL400T14 PO; +INSU100V12 SQ; -INSU100V9 SQ; -LACT1CAP65 PO; -LISI10TA4 PO; -METF1000 PO; +METR-159 PO; +SAW160CA3 PO; -TRAV5DRO EACHEYE; -UBID1CAP60 PO
--- NOTE | 2019-01-08 12:00 | NUR ---
Patient arrived via wheelchair accompanied by caregiver from [facility] and was admitted to outpatient wound care for physician visit with Eric Collins MD. Dressing removed, wound cleansed and lidocaine applied per order. Patient assessed for changes in conditions, medications and medical history. 1115 - Dr. Collins at bedside accompanied by RN. Wound assessed, time out performed by MD/RN. Wound debrided as detailed in the physician progress/procedure note. Plan of care discussed with patient. Dressings placed per MD orders. Patient instructed on the signs and symptoms of infection and to call the Wound Center if any occur or to go to the ED if we are closed: Increased pain in wound Increase in drainage from the wound Redness in the skin surrounding the wound Bleeding from the wound Temperature of 101 or greater Patient instructed that the weight of their body puts a large amount of pressure on their wounds. This pressure keeps the new tissue from growing and inhibits new blood vessels from forming. Explained that, if they continue to bear weight on a body part that has a wound, the time it takes to heal the wound increases, the wound may get worse or the wound may not heal at all. Patient verbalized understanding of all discharge instructions and plan of care and exited via wheelchair accompanied by caregiver out to [facility] in stable condition with no sign or symptom of distress at time of discharge.
[2019-01-08] MEDS ORDERED: OXYC-150 PO (13:44)
[2019-01-08] MEDS ORDERED: MORP-64 PO (13:44)
[2019-01-08] MEDS ORDERED: LORA0.5T PO (13:44)
== END 2019-01-08 11:25 | disposition home or self-care (01) ==
LOC: WOUND CARE 10:00
PROVIDERS: ATTEND Surgery
DX: T84.69XD Infection and inflammatory reaction due to internal fixation device of other site, subsequent encounter (principal); E11.622 Type 2 diabetes mellitus with other skin ulcer; L98.492 Non-pressure chronic ulcer of skin of other sites with fat layer exposed; E11.65 Type 2 diabetes mellitus with hyperglycemia; I10 Essential (primary) hypertension; M19.90 Unspecified osteoarthritis, unspecified site; G47.30 Sleep apnea, unspecified; Z79.82 Long term (current) use of aspirin; Z79.899 Other long term (current) drug therapy; Z79.4 Long term (current) use of insulin; Y83.8 Other surgical procedures as the cause of abnormal reaction of the patient, or of later complication, without mention of misadventure at the time of the procedure
CPT/HCPCS: 97597; A6021; A6206; A6212